=== PATIENT | male | born 1935 | race Caucasian/White ===

== ENCOUNTER → 2017-04-02 | Outpatient (CLI) | payer MEDICARE, BC ==
[~2017-04-02] MED LIST: 00186-0372-20; ALTACE 2.5MG T2.5 MG PO; ALTACE 5MG5 MG PO; AMARYL 2MG T2 MG/TAB PO; AMARYL PO; AMOXICILLIN 8751 TAB PO; ASPIRIN E.C. 8181 MG PO; BYDUREON2MG SQ; BYETTA 10M600 MCG/SY SC; BYETTA SQ; CENTRUM1 TAB PO; CO ENZYME Q-1050 MG PO; COQ10 PO; CRESTOR; CRESTOR 10MG10 MG PO; DEPO-TESTOS100 MG/ML IM; FISH OIL CONC1000 MG PO; FLAXSEED OIL1000 MG PO; FLONASE NASAL S16 GM; FLONASE NASAL S16 GM NS; GLUCOSAMINE500 M1 PO; LANTUS100 U/ML SC; LEVAQUIN 750MG750 M1 PO; LORATADINE10 MG PO; MULTIPLE VITAMI1 CAP PO; NEXIUM40 MG PO; PRAVACHOL 20MG20 MG PO; PRIL40 PO; PULMICORT0.5 MG/21 IH; RITE AID KRILL500 MG PO; ROPINAROLE PO; SINGULAIR10 MG PO; VITAMIN B 12 PO; VITAMIN C500 MG PO; [UNRECOGNIZED DRUG - OTHER] PO
[2017-04-02 09:32] LABS: HEMOGLOBIN 17.8 g/dl (13.5-18.0)
[2017-04-02 09:39] LABS: HEMATOCRIT 52.2 % (42.0-52.0)
== END ==
LOC: COL.LAB 09:05
PROVIDERS: Urology
DX: D58.2 Other hemoglobinopathies (principal); R71.8 Other abnormality of red blood cells

== ENCOUNTER → 2018-07-06 | Outpatient (CLI) | payer MEDICARE, BC | LOC: COL.RAD 10:45 | DX: M25.552 Pain in left hip (principal); M25.551 Pain in right hip; Z85.820 Personal history of malignant melanoma of skin ==

== ENCOUNTER 2019-06-08 17:37 | Emergency (ER) | payer MEDICARE, BC ==
[~2019-06-08] VITALS: Ht 170.2 cm; Wt 81.8 kg
[2019-06-08] MEDS ORDERED: TRULICITY1.5 MG/0.5 SQ (17:44)
[2019-06-08] MEDS ORDERED: ALTACE 5MG5 MG PO (17:45)
[2019-06-08] MEDS ORDERED: PROTONIX40 MG/Pack (17:45)
[2019-06-08] MEDS ORDERED: LYRICA 50MG CAP50 MG (17:46)
[2019-06-08 18:52] LABS: BASO # 0.1 (0.0-0.2); BASO % 0.7 % (0.0-2.0); EOS # 0.3 (0.0-0.7); EOS % 2.7 % (0-4.0); GRAN # 5.6 (1.4-6.5); HEMOGLOBIN 17.6 g/dl (13.5-18.0); LYMPH # 3.3 (1.2-3.4); LYMPH % 31.4 % (20.0-51.0); MEAN CELL VOLUME 87 fl (80.0-100.0); MEAN CORPUSCULAR HEMOGLOBIN 29 pg (27.0-31.0); MEAN CORPUSCULAR HGB CONC 33 g/dl (33.0-37.0); MEAN PLATELET VOLUME 8.6 fl (7.4-10.4); MONO % 9.5 % (1.7-9.3); PLATELET COUNT 156 K/mm3 (130-400); RED BLOOD COUNT 6.12 M/mm3 (4.20-5.60); REDCELL DISTRIBUTION WIDTH-CV 13.3 % (11.5-14.5)
[2019-06-08 18:53] LABS: HEMATOCRIT 53.1 % (42.0-52.0)
[2019-06-08 18:56] LABS: INR 0.9 (0.8-3.0); PROTHROMBIN TIME 10.9 SECONDS (9.7-12.8)
[2019-06-08 18:58] LABS: PARTIAL THROMBOPLASTIN TIME 34.6 SECONDS (26.0-37.0)
[2019-06-08 19:09] LABS: ALBUMIN 4.6 gm/dL (3.5-5.0); BILIRUBIN,TOTAL 0.9 mg/dL (0.0-1.0); CALCIUM 10.1 mg/dL (8.4-10.2); CREATININE, serum 1.23 (0.66-1.25); POTASSIUM 4.8 mmol/L (3.4-5.0); TOTAL PROTEIN 7.4 gm/dL (6.4-8.2)
[2019-06-08 20:25] VITALS: BP 137/82; PULSE 80; TEMP 98.2
== END 2019-06-08 20:30 | disposition short-term general hospital (02) ==
LOC: COL.ER 17:37
PROVIDERS: Emergency Medicine
DX: S06.6X0A Traumatic subarachnoid hemorrhage without loss of consciousness, initial encounter (principal); S01.01XA Laceration without foreign body of scalp, initial encounter; K21.9 Gastro-esophageal reflux disease without esophagitis; E78.00 Pure hypercholesterolemia, unspecified; I10 Essential (primary) hypertension; E11.9 Type 2 diabetes mellitus without complications; Z23 Encounter for immunization; Z79.82 Long term (current) use of aspirin; Z79.4 Long term (current) use of insulin; Z79.51 Long term (current) use of inhaled steroids; W22.8XXA Striking against or struck by other objects, initial encounter; Y92.009 Unspecified place in unspecified non-institutional (private) residence as the place of occurrence of the external cause
CPT/HCPCS: J1953; J7050

== ENCOUNTER → 2019-08-31 | Outpatient (CLI) | payer MEDICARE, BC ==
[~2019-08-31] VITALS: Ht 170.2 cm; Wt 84.0 kg
[~2019-08-31] MED LIST changes: +LYRICA 50MG CAP50 MG; +PROTONIX40 MG/Pack; +TRULICITY1.5 MG/0.5 SQ
[2019-08-31 15:13] VITALS: BP 178/95; PULSE 72
--- NOTE | 2019-08-31 15:15 | NUR ---
ASSESSMENT DONE BY BENJI LEWIS AND QUESTIONS DONE BY BENJI LEWIS
[2019-08-31 16:05] VITALS: BP 159/95; PULSE 72
== END ==
LOC: COL.RAD 14:00
DX: J90 Pleural effusion, not elsewhere classified (principal)

== ENCOUNTER 2020-04-16 09:20 | Emergency (ER) | payer MEDICARE, BC ==
[~2020-04-16] VITALS: Ht 170.2 cm; Wt 79.5 kg
[2020-04-16 09:30] VITALS: BP 140/85; TEMP 97.4
[2020-04-16 10:54] VITALS: PULSE 63
== END 2020-04-16 10:48 | disposition home or self-care (01) ==
LOC: COL.ER 09:20
DX: T63.461A Toxic effect of venom of wasps, accidental (unintentional), initial encounter (principal); E11.9 Type 2 diabetes mellitus without complications; J45.909 Unspecified asthma, uncomplicated; K21.9 Gastro-esophageal reflux disease without esophagitis; Z90.89 Acquired absence of other organs; Z87.891 Personal history of nicotine dependence; Z79.82 Long term (current) use of aspirin; Z79.84 Long term (current) use of oral hypoglycemic drugs
CPT/HCPCS: J2930

== ENCOUNTER → 2020-07-16 | Outpatient (CLI) | payer MEDICARE, BC ==
[2020-07-16 21:46] LABS: TOTAL PROTEIN,PLEURAL FLUID 3.4 gm/dL
== END ==
LOC: ZCOL.LAB 20:19
PROVIDERS: Internal Medicine Pulmonary Disease
DX: J90 Pleural effusion, not elsewhere classified (principal)

== ENCOUNTER 2021-01-17 13:42 | Emergency (ER) | payer MEDICARE, BC ==
[~2021-01-17] VITALS: Ht 170.2 cm; Wt 79.5 kg
[2021-01-17 13:53] VITALS: BP 151/78; TEMP 98.2
[2021-01-17 15:44] VITALS: PULSE 74
== END 2021-01-17 15:43 | disposition home or self-care (01) ==
LOC: COL.ER 13:42
DX: S00.03XA Contusion of scalp, initial encounter (principal); J90 Pleural effusion, not elsewhere classified; I10 Essential (primary) hypertension; Z79.82 Long term (current) use of aspirin; Z79.4 Long term (current) use of insulin; Z79.899 Other long term (current) drug therapy; W17.89XA Other fall from one level to another, initial encounter

== ENCOUNTER → 2021-01-25 | Outpatient (CLI) | payer MEDICARE, BC | LOC: ZCOL.LAB 16:02 | DX: J90 Pleural effusion, not elsewhere classified (principal) ==

== ENCOUNTER 2023-12-29 13:50 | Emergency (ER) | payer MEDICARE ==
[~2023-12-29] VITALS: Ht 170.2 cm; Wt 79.1 kg
[~2023-12-29 13:50] MED LIST changes: +CEPHALEXIN500 M1 PO; +PREDNISONE20 MG PO
[2023-12-29 14:04] VITALS: BP 170/89; PULSE 68; TEMP 97
== END 2023-12-29 16:55 | disposition home or self-care (01) ==
LOC: COL.ER 13:50
DX: S76.811A Strain of other specified muscles, fascia and tendons at thigh level, right thigh, initial encounter (principal); X50.1XXA Overexertion from prolonged static or awkward postures, initial encounter